=== PATIENT | male | born 1950 | race Two or more races ===

== ENCOUNTER 2022-11-13 05:28 | Day surgery (SDC) | payer OTHER ==
[~2022-11-13] VITALS: Ht 180.3 cm; Wt 79.4 kg
[~2022-11-13 05:28] MED LIST: CHLORTHALIDONE25 MG PO
[2022-11-13] MEDS ORDERED: PERCOCET 5-3251 EACH PO (09:02)
[2022-11-13] MEDS ORDERED: RECTICARE30 GM TOP (09:02)
[2022-11-13] MEDS ORDERED: DERMOPLAST PAIN78 GM TOP (09:03)
== END 2022-11-13 14:45 | disposition home or self-care (01) ==
LOC: CIR.AMB 05:28
PROVIDERS: ATTEND Surgery
DX: K64.8 Other hemorrhoids (principal); K64.4 Residual hemorrhoidal skin tags; K59.04 Chronic idiopathic constipation; I10 Essential (primary) hypertension; Z88.6 Allergy status to analgesic agent; Z20.822 Contact with and (suspected) exposure to COVID-19